=== PATIENT | male | born 1990 | race African-American/Black ===

== ENCOUNTER 2018-02-10 12:08 | Emergency (ER) | payer OTHER ==
[~2018-02-10] VITALS: Ht 175.3 cm; Wt 72.6 kg
[~2018-02-10 12:08] MED LIST: LIDOCAINE VISC100 M1 MM; NOHOMEMEDICATIONS
[2018-02-10] MEDS ORDERED: BACTRIM DS TAB1 EACH PO (13:06)
[2018-02-10 13:15] VITALS: BP 117/74
== END 2018-02-10 13:16 | disposition home or self-care (01) ==
LOC: ER 12:08
DX: L02.11 Cutaneous abscess of neck (principal); F17.210 Nicotine dependence, cigarettes, uncomplicated; F90.9 Attention-deficit hyperactivity disorder, unspecified type

== ENCOUNTER 2020-09-09 07:27 | Emergency (ER) | payer OTHER ==
[~2020-09-09] VITALS: Ht 175.3 cm; Wt 70.3 kg
[~2020-09-09 07:27] MED LIST changes: +BACTRIM DS TAB1 EACH PO; +DOXYCYCLINE 10100 MG PO
[2020-09-09 07:47] LABS: URINE BILIRUBIN NEGATIVE (Negative); URINE BLOOD NEGATIVE (Negative); URINE CLARITY SL CLOUDY; URINE COLOR YELLOW; URINE GLUCOSE-RANDOM* NEGATIVE (Negative); URINE KETONES NEGATIVE (Negative); URINE LEUKOCYTES-REFLEX 1+ (Negative); URINE NITRITE-REFLEX NEGATIVE (Negative); URINE PROTEIN (DIPSTICK) NEGATIVE (Negative); URINE UROBILINOGEN 0.2 E.U./dl (0.2-1.0)
[2020-09-09 07:55] LABS: CASTS None Seen /LPF (None Seen); CRYSTALS None Seen /LPF (None Seen); SQUAMOUS None Seen /LPF (0-3)
[2020-09-09 07:56] LABS: URINE RBC None Seen /HPF (NONE SEEN); URINE WBC-REFLEX >25 Many /HPF (0-5)
[2020-09-09 07:57] LABS: BACTERIA-REFLEX 1-9 Few /HPF (None Seen)
[2020-09-09] MEDS ORDERED: DOXYCYCLINE 10100 MG PO (08:06)
[2020-09-09 08:18] VITALS: BP 128/80
== END 2020-09-09 08:18 | disposition home or self-care (01) ==
LOC: ER 07:27
PROVIDERS: Emergency Medicine
DX: N34.2 Other urethritis (principal); F90.9 Attention-deficit hyperactivity disorder, unspecified type